=== PATIENT | male | born 1940 | race Two or more races ===

== ENCOUNTER → 2022-05-12 | Outpatient (CLI) | payer OTHER ==
[2022-05-12 06:50] LABS: Basophils # (auto) 0.1 10 ^3/uL (0-0.2); Eosinophils # (auto) 0.1 10 ^3/uL (0-0.8); Lymphocytes # (auto) 1.2 10 ^3/uL (0.4-5.4); Monocytes # (auto) 0.6 10 ^3/uL (0-1.3); White Blood Cell 5.2 10^3/uL (4.4-10.8)
[2022-05-12 06:54] LABS: Basophils % (auto) 1.3 % (0.0-2.0); Eosinophils % (auto) 2.7 % (0.0-7.0); Hematocrit 40.3 % (41.0-53.0); Hemoglobin 13.4 g/dL (13.5-17.5); Lymphocytes % (auto) 22.6 % (10.0-50.0); Mean Corpuscular Hemoglobin 26.5 pg (28.0-32.0); Mean Corpuscular Hgb Conc. 33.2 g/dL (32.0-36.0); Monocytes % (auto) 11.2 % (0.0-12.0); Neutrophils # (auto) 3.3 10 ^3/uL (1.6-8.6); Neutrophils % (auto) 62.2 % (37.0-80.0); Red Blood Cells 5.04 10^6/uL (4.5-5.90); Red Cell Distribution Width 14.5 % (11.8-14.3)
[2022-05-12 07:19] LABS: Urine Bacteria NONE SEEN /hpf (None Seen); Urine Blood Negative /uL (Negative); Urine Mucus FEW (None Seen); Urine Specific Gravity 1.027 (1.001-1.035); Urine WBC 4 /hpf (0 - 3)
[2022-05-12 07:32] LABS: Albumin 3.5 g/dL (3.4-5.0); Calcium 8.2 mg/dL (8.5-10.1); Potassium 4.4 mmol/L (3.5-5.1)
[2022-05-12 07:39] LABS: BUN/Creatinine Ratio 36.9; Total Protein 6.5 g/dL (6.4-8.2)
[2022-05-12 08:42] LABS: T3 Total 1.5 ng/mL (0.60-1.81)
== END | disposition home or self-care (01) ==
LOC: LAB 06:23
PROVIDERS: ATTEND Family Medicine
DX: Z00.01 Encounter for general adult medical examination with abnormal findings (principal)
CPT/HCPCS: 36415; 80053; 80061; 81001; 83036; 84439; 84443; 84480; 85025

== ENCOUNTER → 2022-08-18 | Outpatient (CLI) | payer OTHER ==
[2022-08-18 06:52] LABS: Urine Bacteria FEW /hpf (None Seen); Urine Blood Negative /uL (Negative); Urine Mucus FEW (None Seen); Urine Specific Gravity 1.021 (1.001-1.035); Urine WBC 7 /hpf (0 - 3)
[2022-08-18 07:17] LABS: Albumin 3.7 g/dL (3.4-5.0); Calcium 8.3 mg/dL (8.5-10.1); Potassium 4.2 mmol/L (3.5-5.1)
[2022-08-18 07:24] LABS: BUN/Creatinine Ratio 23.5 (10.0-20.0); Bilirubin, Total 1.2 mg/dL (0.2-1.0); Total Protein 6.5 g/dL (6.4-8.2)
== END | disposition home or self-care (01) ==
LOC: LAB 06:20
PROVIDERS: ATTEND Family Medicine
DX: Z00.01 Encounter for general adult medical examination with abnormal findings (principal)
CPT/HCPCS: 36415; 80053; 80061; 81001; 82043; 83036; 84153; 84154

== ENCOUNTER → 2022-11-19 | Outpatient (CLI) | payer OTHER ==
[2022-11-19 08:01] LABS: Alanine Aminotransferase 17 U/L (7-40); Albumin 4.2 g/dL (3.2-4.8); Alkaline Phosphatase 98 U/L (46-116); Aspartate Aminotransferase 24 U/L (13-40); BUN/Creatinine Ratio 20.7 (10.0-20.0); Bilirubin, Total 1.2 mg/dL (0.2-1.0); Blood Urea Nitrogen 18 mg/dL (9-23); Calcium 8.9 mg/dL (8.5-10.1); Carbon Dioxide 25 mmol/L (20-30); Cholesterol 136 mg/dL (< 200); Glucose 94 mg/dL (74-106); HDL Cholesterol 36 mg/dL (40-59); LDL Cholesterol 86 mg/dL (< 100); Total Protein 6.6 g/dL (5.7-8.2); Triglycerides 125 mg/dL (< 150)
[2022-11-19 09:02] LABS: Anion Gap 5 (5-15); Chloride 109 mmol/L (98-107); Potassium 4.8 mmol/L (3.5-5.1); Sodium 139 mmol/L (136-145)
== END | disposition home or self-care (01) ==
LOC: LAB 06:42
PROVIDERS: ATTEND Family Medicine
DX: R80.9 Proteinuria, unspecified (principal)
CPT/HCPCS: 36415; 80053; 80061; 82043

== ENCOUNTER → 2023-02-19 | Outpatient (CLI) | payer OTHER ==
[2023-02-19 07:21] LABS: Alanine Aminotransferase 20 U/L (7-40); Albumin 4.2 g/dL (3.2-4.8); Alkaline Phosphatase 108 U/L (46-116); Anion Gap 8 (5-15); Aspartate Aminotransferase 21 U/L (13-40); BUN/Creatinine Ratio 19.1 (10.0-20.0); Blood Urea Nitrogen 18 mg/dL (9-23); Carbon Dioxide 24 mmol/L (20-30); Chloride 108 mmol/L (98-107); Cholesterol 158 mg/dL (< 200); Glucose 99 mg/dL (74-106); HDL Cholesterol 36 mg/dL (40-59); LDL Cholesterol 119 mg/dL (< 100); Potassium 4.3 mmol/L (3.5-5.1); Sodium 140 mmol/L (136-145); Triglycerides 82 mg/dL (< 150)
[2023-02-19 07:22] LABS: Bilirubin, Total 0.9 mg/dL (0.2-1.0); Total Protein 6.4 g/dL (5.7-8.2)
== END | disposition home or self-care (01) ==
LOC: LAB 06:06
PROVIDERS: ATTEND Family Medicine
DX: E78.5 Hyperlipidemia, unspecified (principal); E03.9 Hypothyroidism, unspecified
CPT/HCPCS: 36415; 80053; 80061; 83036; 84443; 84481

== ENCOUNTER → 2023-05-15 | Outpatient (CLI) | payer OTHER ==
[2023-05-15 07:29] LABS: Basophils # (auto) 0.1 10 ^3/uL (0-0.2); Eosinophils # (auto) 0.2 10 ^3/uL (0-0.8); Eosinophils % (auto) 2.8 % (0.0-7.0); Monocytes # (auto) 0.7 10 ^3/uL (0-1.3); White Blood Cell 5.9 10^3/uL (4.4-10.8)
[2023-05-15 07:31] LABS: Basophils % (auto) 1.3 % (0.0-2.0); Hematocrit 41.8 % (41.0-53.0); Hemoglobin 13.5 g/dL (13.5-17.5); Lymphocytes # (auto) 1.3 10 ^3/uL (0.4-5.4); Lymphocytes % (auto) 22.6 % (10.0-50.0); Mean Corpuscular Hgb Conc. 32.2 g/dL (32.0-36.0); Mean Corpuscular Volume 77.6 fL (80.0-100.0); Monocytes % (auto) 11.2 % (0.0-12.0); Neutrophils # (auto) 3.7 10 ^3/uL (1.6-8.6); Neutrophils % (auto) 62.1 % (37.0-80.0); Red Blood Cells 5.39 10^6/uL (4.5-5.90); Red Cell Distribution Width 14.9 % (11.8-14.3)
[2023-05-15 07:43] LABS: Urine Bacteria NONE SEEN /hpf (None Seen); Urine Blood Negative /uL (Negative); Urine Clarity Clear (Clear); Urine Color Yellow (Yellow); Urine Protein, UAD TRACE (Negative); Urine Specific Gravity 1.016 (1.001-1.035); Urine Urobilinogen Normal (Negative); Urine WBC 2 /hpf (0 - 3); Urine pH 6.5 (5.0-8.0)
[2023-05-15 07:54] LABS: Platelet Estimate Adequate
[2023-05-15 07:55] LABS: Giant Platelets Few
[2023-05-15 08:02] LABS: Alanine Aminotransferase 19 U/L (7-40); Alkaline Phosphatase 121 U/L (46-116); Anion Gap 4 (5-15); BUN/Creatinine Ratio 20.2 (10.0-20.0); Blood Urea Nitrogen 17 mg/dL (9-23); Calcium 9.2 mg/dL (8.5-10.1); Carbon Dioxide 27 mmol/L (20-30); Chloride 109 mmol/L (98-107); Glucose 89 mg/dL (74-106); Potassium 4.7 mmol/L (3.5-5.1); Sodium 140 mmol/L (136-145); Triglycerides 81 mg/dL (< 150)
[2023-05-15 08:03] LABS: Albumin 4.2 g/dL (3.2-4.8); LDL Cholesterol 94 mg/dL (< 100)
[2023-05-15 08:04] LABS: Aspartate Aminotransferase 27 U/L (13-40); Bilirubin, Total 1.4 mg/dL (0.2-1.0); Cholesterol 137 mg/dL (< 200); HDL Cholesterol 37 mg/dL (40-59); Total Protein 6.3 g/dL (5.7-8.2)
[2023-05-15 08:40] LABS: Prostate Specific Antigen 3.65 ng/mL (0.0-4.0)
[2023-05-15 08:45] LABS: Free T4 (Free Thyroxine) 1.09 ng/dL (0.89-1.76)
[2023-05-17 05:06] LABS: Chlamydia Trachomatis, NAA Negative (Negative); Neisseria gonorrhoeae, NAA Negative (Negative)
== END | disposition home or self-care (01) ==
LOC: LAB 06:32
PROVIDERS: ATTEND Family Medicine
DX: Z00.01 Encounter for general adult medical examination with abnormal findings (principal); E03.9 Hypothyroidism, unspecified; E78.5 Hyperlipidemia, unspecified
CPT/HCPCS: 36415; 80053; 80061; 81001; 82306; 83036; 84153; 84439; 84443; 85025

== ENCOUNTER → 2023-07-07 | Outpatient (CLI) | payer OTHER | END | disposition home or self-care (01) | LOC: XYW 14:34 | PROVIDERS: ATTEND Student in an Organized Health Care Education/Training Program | DX: Z01.810 Encounter for preprocedural cardiovascular examination (principal); R94.31 Abnormal electrocardiogram [ECG] [EKG]; I51.89 Other ill-defined heart diseases | CPT/HCPCS: 93306 ==

== ENCOUNTER → 2023-07-10 | Outpatient (CLI) | payer OTHER ==
[~2023-07-10] VITALS: Ht 182.9 cm; Wt 83.0 kg
[2023-07-10] MEDS: ADENOSINE 70 MG in GIVE UN-DILUTED 0 ML IV ONE (09:37)
== END | disposition home or self-care (01) ==
LOC: XYW 07:04
PROVIDERS: ATTEND Student in an Organized Health Care Education/Training Program
DX: Z01.810 Encounter for preprocedural cardiovascular examination (principal); R06.02 Shortness of breath; R94.31 Abnormal electrocardiogram [ECG] [EKG]; I10 Essential (primary) hypertension; E03.9 Hypothyroidism, unspecified
CPT/HCPCS: 78452; 93017; A9500; J0153

== ENCOUNTER → 2023-08-13 | Outpatient (CLI) | payer OTHER ==
[2023-08-13 07:08] LABS: Urine Bacteria None Seen /hpf (None Seen)
[2023-08-13 07:23] LABS: Urine Blood Negative /uL (Negative); Urine Clarity Clear (Clear); Urine Color Light-Yellow (Yellow); Urine Protein, UAD Negative (Negative); Urine Specific Gravity 1.014 (1.001-1.035); Urine Urobilinogen Normal (Negative); Urine WBC <1 /hpf (0 - 3); Urine pH 6.5 (5.0-9.0)
[2023-08-13 07:38] LABS: Basophils # (auto) 0.1 10 ^3/uL (0-0.2); Eosinophils # (auto) 0.2 10 ^3/uL (0-0.8); Hematocrit 41.3 % (41.0-53.0); Lymphocytes # (auto) 1.2 10 ^3/uL (0.4-5.4); Monocytes # (auto) 0.6 10 ^3/uL (0-1.3); Red Blood Cells 5.34 10^6/uL (4.5-5.90)
[2023-08-13 07:43] LABS: Basophils % (auto) 1.2 % (0.0-2.0); Eosinophils % (auto) 2.8 % (0.0-7.0); Hemoglobin 13.7 g/dL (13.5-17.5); Lymphocytes % (auto) 19.5 % (10.0-50.0); Mean Corpuscular Hemoglobin 25.7 pg (28.0-32.0); Mean Corpuscular Hgb Conc. 33.2 g/dL (32.0-36.0); Mean Corpuscular Volume 77.3 fL (80.0-100.0); Monocytes % (auto) 9.9 % (0.0-12.0); Neutrophils % (auto) 66.6 % (37.0-80.0); Nucleated Red Blood Cells % 0.1 %; Red Cell Distribution Width 15.6 % (11.8-14.3)
[2023-08-13 08:12] LABS: Alanine Aminotransferase 14 U/L (7-40); Alkaline Phosphatase 124 U/L (46-116); Anion Gap 5 (5-15); Calcium 9.5 mg/dL (8.5-10.1); Carbon Dioxide 25 mmol/L (20-30); Chloride 109 mmol/L (98-107); Glucose 96 mg/dL (74-106); LDL Cholesterol 95 mg/dL (< 100); Magnesium 2.2 mg/dL (1.6-2.6); Potassium 4.3 mmol/L (3.5-5.1); Sodium 139 mmol/L (136-145); Triglycerides 83 mg/dL (< 150)
[2023-08-13 08:13] LABS: Albumin 4.3 g/dL (3.2-4.8); Aspartate Aminotransferase 16 U/L (13-40); BUN/Creatinine Ratio 14.1 (10.0-20.0); Bilirubin, Total 1.3 mg/dL (0.2-1.0); Blood Urea Nitrogen 13 mg/dL (9-23); Cholesterol 138 mg/dL (< 200); HDL Cholesterol 36 mg/dL (40-59); Total Protein 6.7 g/dL (5.7-8.2)
[2023-08-13 08:59] LABS: Hepatitis B Core Total AB Negative (Negative)
[2023-08-13 09:15] LABS: Hepatitis A Total Antibody Positive (Negative); Hepatitis B Surface Antibody Negative (Negative); Hepatitis B Surface Antigen Negative (Negative); Hepatitis C Antibody Negative (Negative)
[2023-08-13 10:14] LABS: Uric Acid 4.8 mg/dL (3.7-9.2)
== END | disposition home or self-care (01) ==
LOC: LAB 06:33
PROVIDERS: ATTEND Family Medicine
DX: I12.9 Hypertensive chronic kidney disease with stage 1 through stage 4 chronic kidney disease, or unspecified chronic kidney disease (principal); N18.2 Chronic kidney disease, stage 2 (mild); E78.5 Hyperlipidemia, unspecified; E03.9 Hypothyroidism, unspecified; H40.9 Unspecified glaucoma; R80.9 Proteinuria, unspecified; R97.20 Elevated prostate specific antigen [PSA]; Z11.9 Encounter for screening for infectious and parasitic diseases, unspecified; Z12.11 Encounter for screening for malignant neoplasm of colon
CPT/HCPCS: 36415; 80053; 80061; 81001; 83735; 84153; 84443; 84550; 85025; 86704; 86706; 86708; 86803; 87340

== ENCOUNTER 2023-10-21 05:47 | Emergency (ER) | payer OTHER ==
[~2023-10-21] VITALS: Ht 182.9 cm; Wt 89.7 kg
[~2023-10-21 05:47] MED LIST: ASPI-498 OR; CEPH500C PO; CHOL200064 PO; HYDR1TAB97 PO; LEVO75TA6 PO; TIMO0.5S28 OP; VALS1TAB56 PO
[2023-10-21 07:22] LABS: Urine Bacteria None Seen /hpf (None Seen)
[2023-10-21 07:26] LABS: Urine Blood Negative /uL (Negative); Urine Clarity Clear (Clear); Urine Color Light-Yellow (Yellow); Urine Protein, UAD Negative (Negative); Urine Urobilinogen Normal (Negative); Urine WBC <1 /hpf (0 - 3); Urine pH 6.5 (5.0-9.0)
[2023-10-21 08:02] VITALS: BP 135/90; PULSE 85; RESP 15; TEMP 97; O2SAT 96
[2023-10-21 08:08] LABS: Basophils # (auto) 0 10 ^3/uL (0-0.2); Eosinophils # (auto) 0 10 ^3/uL (0-0.8); Eosinophils % (auto) 0.1 % (0.0-7.0); Hemoglobin 13.4 g/dL (13.5-17.5); Lymphocytes # (auto) 0.6 10 ^3/uL (0.4-5.4); Monocytes # (auto) 0.9 10 ^3/uL (0-1.3)
[2023-10-21 08:10] LABS: Basophils % (auto) 0.2 % (0.0-2.0); Chloride 107 mmol/L (98-107); Hematocrit 40.1 % (41.0-53.0); Lymphocytes % (auto) 6.3 % (10.0-50.0); Mean Corpuscular Hemoglobin 25.9 pg (28.0-32.0); Mean Corpuscular Hgb Conc. 33.5 g/dL (32.0-36.0); Mean Corpuscular Volume 77.3 fL (80.0-100.0); Monocytes % (auto) 10.6 % (0.0-12.0); Neutrophils # (auto) 7.3 10 ^3/uL (1.6-8.6); Neutrophils % (auto) 82.8 % (37.0-80.0); Platelet Count (auto) 129 10^3/uL (140-450); Potassium 3.8 mmol/L (3.5-5.1); Red Blood Cells 5.19 10^6/uL (4.5-5.90); Red Cell Distribution Width 15.4 % (11.8-14.3); White Blood Cell 8.8 10^3/uL (4.4-10.8)
[2023-10-21 08:11] LABS: Anion Gap 6 (5-15); Calcium 9.1 mg/dL (8.7-10.4); Carbon Dioxide 21 mmol/L (20-30)
[2023-10-21 08:12] LABS: Sodium 134 mmol/L (136-145)
[2023-10-21 08:16] LABS: BUN/Creatinine Ratio 13.3 (10.0-20.0); Blood Urea Nitrogen 13 mg/dL (9-23); Glucose 104 mg/dL (74-106)
== END 2023-10-21 08:21 | disposition home or self-care (01) ==
LOC: ER 05:47
DX: R33.9 Retention of urine, unspecified (principal); Z98.890 Other specified postprocedural states; Z79.899 Other long term (current) drug therapy
CPT/HCPCS: 36415; 51702; 80048; 81001; 85025

== ENCOUNTER 2023-10-23 06:08 | Emergency (ER) | payer OTHER ==
[~2023-10-23] VITALS: Ht 182.9 cm; Wt 87.1 kg
[2023-10-23 08:22] VITALS: BP 138/75; PULSE 77; RESP 18; TEMP 98.2; O2SAT 94
== END 2023-10-23 08:33 | disposition home or self-care (01) ==
LOC: ER 06:08
DX: T83.038A Leakage of other urinary catheter, initial encounter (principal); E78.5 Hyperlipidemia, unspecified; E03.9 Hypothyroidism, unspecified; Z79.899 Other long term (current) drug therapy; Z79.82 Long term (current) use of aspirin; Z98.890 Other specified postprocedural states

== ENCOUNTER 2023-10-23 09:53 | Emergency (ER) | payer OTHER ==
[~2023-10-23] VITALS: Ht 182.9 cm; Wt 87.1 kg
[2023-10-23 11:02] VITALS: BP 127/82; PULSE 81; RESP 16; TEMP 97.9; O2SAT 96
== END 2023-10-23 11:22 | disposition home or self-care (01) ==
LOC: ER 09:53
DX: T83.038D Leakage of other urinary catheter, subsequent encounter (principal); E78.5 Hyperlipidemia, unspecified; E03.9 Hypothyroidism, unspecified; Z79.899 Other long term (current) drug therapy; Z79.82 Long term (current) use of aspirin
CPT/HCPCS: 51702

== ENCOUNTER 2023-10-28 14:21 | Emergency (ER) | payer OTHER ==
[~2023-10-28] VITALS: Ht 182.9 cm; Wt 83.7 kg
[2023-10-28 17:08] LABS: Basophils # (auto) 0.1 10 ^3/uL (0-0.2); Basophils % (auto) 0.9 % (0.0-2.0); Eosinophils # (auto) 0.2 10 ^3/uL (0-0.8); Eosinophils % (auto) 1.9 % (0.0-7.0); Hematocrit 41.7 % (41.0-53.0); Hemoglobin 14.3 g/dL (13.5-17.5); Lymphocytes # (auto) 1.1 10 ^3/uL (0.4-5.4); Lymphocytes % (auto) 8.3 % (10.0-50.0); Mean Corpuscular Hemoglobin 26.4 pg (28.0-32.0); Mean Corpuscular Hgb Conc. 34.4 g/dL (32.0-36.0); Mean Corpuscular Volume 76.6 fL (80.0-100.0); Monocytes # (auto) 1.3 10 ^3/uL (0-1.3); Monocytes % (auto) 9.7 % (0.0-12.0); Neutrophils # (auto) 10.4 10 ^3/uL (1.6-8.6); Neutrophils % (auto) 79.2 % (37.0-80.0); Platelet Count (auto) 280 10^3/uL (140-450); Red Blood Cells 5.44 10^6/uL (4.5-5.90); Red Cell Distribution Width 15.4 % (11.8-14.3); White Blood Cell 13.1 10^3/uL (4.4-10.8)
[2023-10-28 17:31] LABS: Alanine Aminotransferase 44 U/L (7-40); Albumin 4.2 g/dL (3.2-4.8); Alkaline Phosphatase 160 U/L (46-116); Anion Gap 8 (5-15); Aspartate Aminotransferase 45 U/L (13-40); Bilirubin, Total 1.8 mg/dL (0.2-1.0); Blood Urea Nitrogen 16 mg/dL (9-23); Calcium 9.6 mg/dL (8.7-10.4); Carbon Dioxide 22 mmol/L (20-30); Chloride 106 mmol/L (98-107); Glucose 110 mg/dL (74-106); Potassium 3.8 mmol/L (3.5-5.1); Sodium 136 mmol/L (136-145)
[2023-10-28 18:29] LABS: Urine Bacteria None Seen /hpf (None Seen)
[2023-10-28 18:57] LABS: Urine Blood 3+ /uL (Negative); Urine Clarity Turbid (Clear); Urine Color Yellow (Yellow); Urine Mucus FEW (None Seen); Urine Protein, UAD TRACE (Negative); Urine Specific Gravity 1.012 (1.001-1.035); Urine Urobilinogen Normal (Negative); Urine WBC 8 /hpf (0 - 3); Urine pH 5.5 (5.0-9.0)
[2023-10-28 19:30] VITALS: BP 115/75; PULSE 75; RESP 18; TEMP 98.6; O2SAT 94
== END 2023-10-28 19:39 | disposition home or self-care (01) ==
LOC: ER 14:21
DX: R33.9 Retention of urine, unspecified (principal); Z79.899 Other long term (current) drug therapy; Z98.890 Other specified postprocedural states
CPT/HCPCS: 36415; 51702; 80053; 81001; 85025

== ENCOUNTER → 2023-12-11 | Outpatient (CLI) | payer OTHER ==
[2023-12-11 07:22] LABS: Alanine Aminotransferase 15 U/L (7-40); Alkaline Phosphatase 167 U/L (46-116); Anion Gap 5 (5-15); Aspartate Aminotransferase 18 U/L (13-40); BUN/Creatinine Ratio 15.5 (10.0-20.0); Blood Urea Nitrogen 16 mg/dL (9-23); Calcium 9.6 mg/dL (8.7-10.4); Carbon Dioxide 26 mmol/L (20-31); Chloride 110 mmol/L (98-107); Glucose 98 mg/dL (74-106); LDL Cholesterol 89 mg/dL (< 100); Potassium 4.3 mmol/L (3.5-5.1); Sodium 141 mmol/L (136-145); Triglycerides 94 mg/dL (< 150)
[2023-12-11 07:23] LABS: Albumin 4.1 g/dL (3.2-4.8); Bilirubin, Total 0.9 mg/dL (0.2-1.0); Cholesterol 134 mg/dL (< 200); HDL Cholesterol 35 mg/dL (40-59); Total Protein 6.7 g/dL (5.7-8.2)
== END | disposition home or self-care (01) ==
LOC: LAB 06:11
PROVIDERS: ATTEND Family Medicine
DX: E03.9 Hypothyroidism, unspecified (principal); E78.5 Hyperlipidemia, unspecified
CPT/HCPCS: 36415; 80053; 80061; 83036; 84443

== ENCOUNTER 2024-03-08 09:13 | Day surgery (SDC) | payer OTHER ==
[2024-03-07 09:58] LABS: Basophils # (auto) 0.1 10 ^3/uL (0-0.2); Basophils % (auto) 1.1 % (0.0-2.0); Lymphocytes # (auto) 1.4 10 ^3/uL (0.4-5.4); Monocytes # (auto) 0.9 10 ^3/uL (0-1.3); Neutrophils # (auto) 4.2 10 ^3/uL (1.6-8.6); White Blood Cell 6.7 10^3/uL (4.4-10.8)
[2024-03-07 09:59] LABS: INR 1.11 (0.9-1.15); Partial Thromboplastin Time 28.6 SEC (24.5-34.5); Prothrombin Time 11.7 sec (9.3-11.8)
[2024-03-07 10:01] LABS: Eosinophils # (auto) 0.1 10 ^3/uL (0-0.8); Hematocrit 42.3 % (41.0-53.0); Lymphocytes % (auto) 21.2 % (10.0-50.0); Mean Corpuscular Hgb Conc. 33.1 g/dL (32.0-36.0); Mean Corpuscular Volume 78.6 fL (80.0-100.0); Monocytes % (auto) 13.2 % (0.0-12.0); Neutrophils % (auto) 62.5 % (37.0-80.0); Platelet Count (auto) 187 10^3/uL (140-450); Red Blood Cells 5.39 10^6/uL (4.5-5.90)
[2024-03-07 10:15] LABS: Alanine Aminotransferase 25 U/L (7-40); Calcium 9.8 mg/dL (8.7-10.4); Carbon Dioxide 25 mmol/L (20-31); Chloride 107 mmol/L (98-107); Glucose 94 mg/dL (74-106)
[2024-03-07 10:16] LABS: Albumin 4.2 g/dL (3.2-4.8); Anion Gap 8 (5-15); Aspartate Aminotransferase 27 U/L (13-40); BUN/Creatinine Ratio 25.3 (10.0-20.0); Potassium 4.8 mmol/L (3.5-5.1); Sodium 140 mmol/L (136-145)
[2024-03-07 10:17] LABS: Total Protein 6.8 g/dL (5.7-8.2)
[2024-03-07 10:35] LABS: Alkaline Phosphatase 132 U/L (46-116); Blood Urea Nitrogen 24 mg/dL (9-23)
[2024-03-07 11:07] LABS: Urine Amorphous Crystal FEW /hpf (None Seen); Urine Bacteria FEW /hpf (None Seen); Urine Blood Negative /uL (Negative); Urine Clarity Turbid (Clear); Urine Color Colorless (Yellow); Urine Protein, UAD TRACE (Negative); Urine Specific Gravity 1.017 (1.001-1.035); Urine Squamous Epithelial Cell None Seen /hpf (<5); Urine Urobilinogen 3 mg/dL (Negative); Urine WBC 29 /hpf (0 - 3)
[~2024-03-08] VITALS: Ht 182.9 cm; Wt 82.6 kg
[~2024-03-08 09:13] MED LIST changes: -ASPI-498 OR; -CEPH500C PO
[2024-03-08] MEDS ORDERED: CIPROFLOXACIN 400MG/200ML 200 ML IV ONE (10:18)
--- NOTE | 2024-03-08 11:04 | DVHDS2 ---
New Physician D'charge PN Admitting Diagnosis Admitting Diagnosis Elevated PSA BPH Urinary retention Discharge Diagnosis Same Operations or Procedures Transrectal ultrasound-guided prostate needle biopsy Reason(s) For Hospitalization Surgery Treatment Plan Discharge Condition of Discharge Good Disposition Home Discharge Instructions Diet: Regular Activity: Light activity Activity comment: As tolerated Medications: Given Follow Up Care Follow Up/Referral: Outpatient follow up and plan for Aquablation of the prostate due to enlarged prostate greater than 120 g Discharge Statement: "Patient was advised to return to the ER or call 911 if any headaches, dizziness, shortness of breath, chest pain, abdominal pain, bleeding, fevers, or worsening of medical condition. Patient was counseled about treatment plan, medications, possible side effects, patientverbalized understanding. All questions were answered to the best of my ability. This discharge took greater then 30 minutes in planning, reviewing documentation, counseling the patient, and discussing with other team members." LYLE DEMPSEY MD Mar 08, 2024 11:04
[2024-03-08] MEDS ORDERED: MIDAZOLAM HCL 2MG/2ML 2ml VIAL (1mg/ml) ONE (11:14)
[2024-03-08] MEDS ORDERED: PROPOFOL 10 MG/ML 20 ML IV ONE (11:14)
[2024-03-08] MEDS ORDERED: HYDROmorphone HCL 2 MG/ML VL/or syr IV PRN (11:15)
[2024-03-08] MEDS ORDERED: LIDOCAINE 2% (LOCAL ANESTH.) PF 5ml SDV ONE (11:15)
[2024-03-08] MEDS ORDERED: ONDANSETRON HCL 4 MG/2 ML VIAL IV ONE (11:15)
[2024-03-08 11:35] VITALS: PULSE 72; RESP 15; TEMP 97.8; O2SAT 100
[2024-03-08 11:45] VITALS: PULSE 64; RESP 14; O2SAT 100
[2024-03-08 12:20] VITALS: BP 119/66; PULSE 75; RESP 19; O2SAT 94
== END 2024-03-08 12:45 | disposition home or self-care (01) ==
LOC: SUR 09:13
PROVIDERS: ATTEND Urology
DX: N40.1 Benign prostatic hyperplasia with lower urinary tract symptoms (principal); R97.20 Elevated prostate specific antigen [PSA]; R33.8 Other retention of urine; E03.9 Hypothyroidism, unspecified
CPT/HCPCS: 36415; 55700; 80053; 81001; 85025; 85610; 85730; 87086; 88305; J0744; J2003; J2250; J2704; 76872

== ENCOUNTER → 2024-03-25 | Outpatient (CLI) | payer OTHER ==
[2024-03-25 06:56] LABS: Urine Bacteria None Seen /hpf (None Seen)
[2024-03-25 07:26] LABS: Alanine Aminotransferase 36 U/L (7-40); Albumin 4.5 g/dL (3.2-4.8); Anion Gap 5 (5-15); Aspartate Aminotransferase 34 U/L (13-40); BUN/Creatinine Ratio 15.7 (10.0-20.0); Blood Urea Nitrogen 16 mg/dL (9-23); Calcium 9.5 mg/dL (8.7-10.4); Carbon Dioxide 26 mmol/L (20-31); Glucose 99 mg/dL (74-106); LDL Cholesterol 85 mg/dL (< 100); Potassium 4.6 mmol/L (3.5-5.1); Sodium 139 mmol/L (136-145); Triglycerides 93 mg/dL (< 150)
[2024-03-25 07:27] LABS: Cholesterol 128 mg/dL (< 200); Total Protein 6.9 g/dL (5.7-8.2)
[2024-03-25 07:33] LABS: Urine Blood Negative /uL (Negative); Urine Clarity Clear (Clear); Urine Color Light-Yellow (Yellow); Urine Mucus FEW (None Seen); Urine Protein, UAD Negative (Negative); Urine Specific Gravity 1.014 (1.001-1.035); Urine Squamous Epithelial Cell FEW /hpf (<5); Urine Urobilinogen Normal (Negative); Urine WBC 1 /HPF (0-3); Urine pH 6.5 (5.0-9.0)
[2024-03-25 07:34] LABS: Alkaline Phosphatase 150 U/L (46-116); Bilirubin, Total 1.5 mg/dL (0.2-1.0); Chloride 108 mmol/L (98-107); HDL Cholesterol 36 mg/dL (40-59)
== END | disposition home or self-care (01) ==
LOC: LAB 06:31
PROVIDERS: ATTEND Family Medicine
DX: E78.6 Lipoprotein deficiency (principal); E03.9 Hypothyroidism, unspecified; R73.03 Prediabetes; Z79.899 Other long term (current) drug therapy
CPT/HCPCS: 36415; 80053; 80061; 81001; 83036; 84443

== ENCOUNTER → 2024-05-31 | Outpatient (CLI) | payer OTHER ==
[2024-05-31 07:35] LABS: Alanine Aminotransferase 20 U/L (7-40); Albumin 4.4 g/dL (3.2-4.8); Anion Gap 6 (5-15); Aspartate Aminotransferase 25 U/L (13-40); BUN/Creatinine Ratio 23.1 (10.0-20.0); Blood Urea Nitrogen 21 mg/dL (9-23); Calcium 9.5 mg/dL (8.7-10.4); Carbon Dioxide 26 mmol/L (20-31); Glucose 92 mg/dL (74-106); Potassium 4.8 mmol/L (3.5-5.1); Sodium 141 mmol/L (136-145); Total Protein 6.9 g/dL (5.7-8.2)
[2024-05-31 07:39] LABS: Alkaline Phosphatase 127 U/L (46-116); Bilirubin, Total 1.3 mg/dL (0.2-1.0); Chloride 109 mmol/L (98-107)
[2024-05-31 08:04] LABS: Triglycerides 88 mg/dL (< 150)
[2024-05-31 08:05] LABS: LDL Cholesterol 88 mg/dL (< 100)
[2024-05-31 08:06] LABS: Cholesterol 137 mg/dL (< 200)
[2024-05-31 08:13] LABS: HDL Cholesterol 35 mg/dL (40-59)
== END | disposition home or self-care (01) ==
LOC: LAB 06:20
PROVIDERS: ATTEND Family Medicine
DX: I10 Essential (primary) hypertension (principal); E03.9 Hypothyroidism, unspecified; E88.819 Insulin resistance, unspecified
CPT/HCPCS: 36415; 80053; 80061; 83036; 84443

== ENCOUNTER 2024-08-10 06:03 | Outpatient (CLI) | payer OTHER ==
[2024-08-10 07:26] LABS: Basophils # (auto) 0.1 10 ^3/uL (0-0.2); Eosinophils # (auto) 0.1 10 ^3/uL (0-0.8); Eosinophils % (auto) 2.5 % (0.0-7.0); Hematocrit 41.8 % (41.0-53.0); Hemoglobin 13.7 g/dL (13.5-17.5); Lymphocytes # (auto) 1.5 10 ^3/uL (0.4-5.4); Lymphocytes % (auto) 27.3 % (10.0-50.0); Mean Corpuscular Hemoglobin 25.6 pg (28.0-32.0); Mean Corpuscular Hgb Conc. 32.8 g/dL (32.0-36.0); Mean Corpuscular Volume 77.9 fL (80.0-100.0); Monocytes # (auto) 0.6 10 ^3/uL (0-1.3); Neutrophils # (auto) 3.2 10 ^3/uL (1.6-8.6); Neutrophils % (auto) 58.2 % (37.0-80.0); Nucleated Red Blood Cells % 0.1 %; Platelet Count (auto) 169 10^3/uL (140-450); Red Blood Cells 5.37 10^6/uL (4.5-5.90); Red Cell Distribution Width 14.8 % (11.8-14.3); White Blood Cell 5.4 10^3/uL (4.4-10.8)
[2024-08-10 07:59] LABS: Alanine Aminotransferase 17 U/L (7-40); Albumin 4.2 g/dL (3.2-4.8); Calcium 9.7 mg/dL (8.7-10.4); Carbon Dioxide 25 mmol/L (20-31); Glucose 91 mg/dL (74-106); LDL Cholesterol 83 mg/dL (< 100); Potassium 4.5 mmol/L (3.5-5.1); Triglycerides 95 mg/dL (< 150)
[2024-08-10 08:00] LABS: Anion Gap 10 (5-15); Aspartate Aminotransferase 22 U/L (13-40); BUN/Creatinine Ratio 19.8 (10.0-20.0); Blood Urea Nitrogen 19 mg/dL (9-23); Chloride 108 mmol/L (98-107); Cholesterol 128 mg/dL (< 200); Sodium 143 mmol/L (136-145); Total Protein 6.5 g/dL (5.7-8.2)
[2024-08-10 08:01] LABS: Alkaline Phosphatase 123 U/L (46-116); Bilirubin, Total 1.5 mg/dL (0.2-1.0); HDL Cholesterol 29 mg/dL (40-59)
[2024-08-10 08:40] LABS: Uric Acid 5.5 mg/dL (3.7-9.2)
[2024-08-10 08:48] LABS: T3 Total 1.28 ng/mL (0.60-1.81)
[2024-08-10 08:49] LABS: Free T4 (Free Thyroxine) 1.25 ng/dL (0.89-1.76)
[2024-08-11 13:43] LABS: Urine Bacteria FEW /hpf (None Seen); Urine Blood Negative /uL (Negative); Urine Clarity Turbid (Clear); Urine Color Yellow (Yellow); Urine Protein, UAD TRACE (Negative); Urine Specific Gravity 1.016 (1.001-1.035); Urine Squamous Epithelial Cell None Seen /hpf (<5); Urine Urobilinogen Normal (Negative); Urine WBC 3 /HPF (0-3)
== END 2024-08-10 17:00 | disposition home or self-care (01) ==
LOC: LAB 06:03
PROVIDERS: ATTEND Family Medicine
DX: E03.9 Hypothyroidism, unspecified (principal); N18.2 Chronic kidney disease, stage 2 (mild); R97.20 Elevated prostate specific antigen [PSA]; Z00.01 Encounter for general adult medical examination with abnormal findings; Z11.3 Encounter for screening for infections with a predominantly sexual mode of transmission; Z13.89 Encounter for screening for other disorder; Z12.11 Encounter for screening for malignant neoplasm of colon; Z79.899 Other long term (current) drug therapy
CPT/HCPCS: 36415; 80053; 80061; 81001; 82043; 82306; 83036; 84439; 84443; 84480; 84550; 85025

== ENCOUNTER 2024-11-15 06:03 | Outpatient (CLI) | payer OTHER ==
[2024-11-15 07:11] LABS: Alanine Aminotransferase 19 U/L (7-40); Albumin 4.1 g/dL (3.2-4.8); Anion Gap 9 (5-15); BUN/Creatinine Ratio 17.0 (10.0-20.0); Blood Urea Nitrogen 16 mg/dL (9-23); Calcium 9.0 mg/dL (8.7-10.4); Carbon Dioxide 25 mmol/L (20-31); Glucose 91 mg/dL (74-106); Potassium 4.4 mmol/L (3.5-5.1); Sodium 142 mmol/L (136-145); Total Protein 6.5 g/dL (5.7-8.2); Triglycerides 93 mg/dL (< 150); Urine Protein, UAD Negative (Negative); Urine WBC Clumps PRESENT /hpf (None Seen)
[2024-11-15 07:12] LABS: Cholesterol 129 mg/dL (< 200)
[2024-11-15 07:13] LABS: Alkaline Phosphatase 117 U/L (46-116); Bilirubin, Total 1.4 mg/dL (0.2-1.0); Chloride 108 mmol/L (98-107); HDL Cholesterol 31 mg/dL (40-59)
== END 2024-11-15 17:00 | disposition home or self-care (01) ==
LOC: LAB 06:03
PROVIDERS: ATTEND Family Medicine
DX: N40.1 Benign prostatic hyperplasia with lower urinary tract symptoms (principal); N18.2 Chronic kidney disease, stage 2 (mild); N31.2 Flaccid neuropathic bladder, not elsewhere classified; E80.6 Other disorders of bilirubin metabolism; E87.8 Other disorders of electrolyte and fluid balance, not elsewhere classified; E03.9 Hypothyroidism, unspecified; E78.6 Lipoprotein deficiency
CPT/HCPCS: 36415; 80053; 80061; 80069; 81001; 82043; 83036; 84153; 84443

== ENCOUNTER 2025-02-14 06:09 | Outpatient (CLI) | payer OTHER ==
[2025-02-14 07:25] LABS: Alanine Aminotransferase 24 U/L (7-40); Albumin 4.2 g/dL (3.2-4.8); Anion Gap 11 (5-15); BUN/Creatinine Ratio 15.3 (10.0-20.0); Blood Urea Nitrogen 15 mg/dL (9-23); Calcium 9.3 mg/dL (8.7-10.4); Carbon Dioxide 24 mmol/L (20-31); Chloride 106 mmol/L (98-107); Cholesterol 127 mg/dL (< 200); Glucose 89 mg/dL (74-106); Potassium 4.3 mmol/L (3.5-5.1); Sodium 141 mmol/L (136-145); Total Protein 6.9 g/dL (5.7-8.2); Triglycerides 109 mg/dL (< 150)
[2025-02-14 07:27] LABS: Alkaline Phosphatase 140 U/L (46-116); Bilirubin, Total 1.4 mg/dL (0.2-1.0); HDL Cholesterol 34 mg/dL (40-59)
[2025-02-14 07:36] LABS: Microalb/Creat Ratio, Urine 83.0
== END 2025-02-14 17:00 | disposition home or self-care (01) ==
LOC: LAB 06:09
PROVIDERS: ATTEND Family Medicine
DX: I10 Essential (primary) hypertension (principal); E78.5 Hyperlipidemia, unspecified; Z79.899 Other long term (current) drug therapy
CPT/HCPCS: 36415; 80053; 80061; 82043; 82570; 83036